=== PATIENT | male | born 1975 | race Caucasian/White ===

== ENCOUNTER 2021-09-04 11:40 | Emergency (ER) | payer OTHER, SELFPAY ==
--- NOTE | 2021-09-04 11:49 | ED.DIZZY ---
HPI - Dizziness General Chief Complaint: Dizziness Stated Complaint: Dizzy.fatigue Time Seen by Provider: 09/04/21 11:54 Source: patient and RN notes reviewed Mode of arrival: ambulatory Limitations: no limitations History of Present Illness MD elicited complaint: dizziness Onset (ago): hour(s) (5) Timing: sudden onset Severity: moderate Description: lightheadedness History of similar symptoms: No Exacerbating factors: position/lying down Relieving factors: remaining still Associated symptoms: nausea and diaphoresis Related Data Allergies Allergy/AdvReac Type Severity Reaction Status Date / Time No Known Allergies Allergy Unverified 09/04/21 12:02 Review of Systems Constitutional: Constitutional: Denies chills and Denies fever(s) ENT: Denies sore throat Cardiovascular: Cardiovascular: Denies chest pain and Denies rapid heart rate Respiratory: Respiratory: Denies dyspnea Gastrointestinal: Gastrointestinal: Denies diarrhea and Denies vomiting Genitourinary: Genitourinary: Denies dysuria Neurologic: Denies confusion, Denies headache(s) and Denies focal weakness Endocrine: Endocrine: Reports fatigue PMFSH Past Medical History Medical History (Updated 09/04/21 @ 13:03 by Yrn Adame MD) Diverticulosis Surgical History Surgical History (Updated 09/04/21 @ 12:08 by Yrn Adame MD) Hx of tonsillectomy Social History Social History (Updated 09/04/21 @ 12:09 by Yrn Adame MD) Smoking status: Never smoker Alcohol intake: current Alcohol use details: occasionally Substance use: never Exam Const: General: healthy appearing, no acute distress and alert Nutritional Appearance: well nourished Orientation/consciousness: patient oriented x3 HENMT: Head: normal to inspection Face and sinus: normal facial exam Eyes: Conjunctivae: conjunctivae normal Pupils: Equal, round and reactive pupils present EOM: EOMs intact bilaterally Neck: Neck: normal visual inspection Resp: Effort & Inspection: normal respiratory effort Auscultation: clear to auscultation bilaterally Cardio: Rate: regular rate Rhythm: regular rhythm GI: GI Palp: Yes Soft to palpation and No Tenderness to palpation present (GI) Auscultation: normal bowel sounds Back/Spine/Pelvis: Cervical Spine: cervical ROM normal Thoracic/Lumbar Spine: thoraco-lumbar ROM normal Skin: General skin exam: normal color Rashes: no rashes Neuro: General: patient oriented x3, moves all extremities, no focal motor deficits and CN's II-XI intact bilaterally Cranial nerves: Yes Nystagmus not present Speech: normal speech Gait exam (Neuro): Normal gait present Extrem: General: normal to inspection and no clubbing, cyanosis or edema Psych: Mental Status: mental status grossly normal Affect: normal affect Attitude: cooperative Course Vital Signs Vital signs: Vital Signs Temperature 37.1 C 09/04/21 11:56 Pulse Rate 79 09/04/21 11:56 Respiratory Rate 16 09/04/21 11:56 Blood Pressure 154/91 H 09/04/21 11:56 Pulse Oximetry 97 09/04/21 11:56 Oxygen Delivery Room Air 09/04/21 11:56 Temperature 36.4 C L 09/04/21 13:12 Pulse Rate 87 09/04/21 13:12 Respiratory Rate 16 09/04/21 13:12 Blood Pressure 145/92 H 09/04/21 13:12 Pulse Oximetry 98 09/04/21 13:12 Oxygen Delivery Room Air 09/04/21 13:12 MDM - Dizziness Lab Data Attestation: I reviewed the patient's lab results. Result diagrams: 09/04/21 12:06 09/04/21 12:06 Labs: Lab Results 09/04/21 09/04/21 09/04/21 Range/Units 12:05 12:06 12:06 WBC 5.9 (4.8-10.8) K/mm3 RBC 5.06 (4.70-6.10) M/mm3 Hgb 16.8 (14.0-18.0) g/dL Hct 48.4 (40.0-54.0) % MCV 95.7 (78.0-102.0) fL MCH 33.2 H (27.0-31.0) pg MCHC 34.7 (32.0-36.0) g/dL RDW 13.2 (11.6-14.4) % Plt Count 208 (150-420) K/mm3 MPV 9.6 (8.7-11.0) fl Immature Gran % (Auto) 0.3 H (0.0-0.0) % Neut % (Au
[2021-09-04 11:56] VITALS: BP 154/91; PULSE 79; RESP 16; TEMP 37.1; O2SAT 97
[2021-09-04 12:10] LABS: Basophils Absolute Auto 0.03 K/mm3 (0.00-0.10); Basophils Percent Auto 0.5 % (0.0-1.0); Eosinophils Absolute Auto 0.24 K/mm3 (0.02-0.50); Eosinophils Percent Auto 4.1 % (1.0-6.0); Hematocrit 48.4 % (40.0-54.0); Hemoglobin 16.8 g/dL (14.0-18.0); Immature Granulocyte Absolute 0.02 K/mm3 (0.00-0.00); Immature Granulocyte Percent A 0.3 % (0.0-0.0); Lymphocytes Absolute Auto 1.77 K/mm3 (1.10-4.50); Lymphocytes Percent Auto 30.1 % (18.0-42.0); Mean Corpuscular HGB Conc 34.7 g/dL (32.0-36.0); Mean Corpuscular Hemoglobin 33.2 pg (27.0-31.0); Mean Corpuscular Volume 95.7 fL (78.0-102.0); Mean Platelet Volume 9.6 fl (8.7-11.0); Monocytes Absolute Auto 0.44 K/mm3 (0.10-0.90); Monocytes Percent Auto 7.5 % (2.0-11.0); Neutrophils Absolute Auto 3.4 K/mm3 (1.7-7.2); Neutrophils Percent Auto 57.5 % (50.0-70.0); Platelet Count Result 208 K/mm3 (150-420); Red Blood Count 5.06 M/mm3 (4.70-6.10); Red Cell Distribution Width 13.2 % (11.6-14.4); White Blood Count 5.9 K/mm3 (4.8-10.8)
[2021-09-04 12:35] LABS: Alanine Aminotransferase 120 U/L (16-63); Albumin Level 3.7 g/dL (3.4-5.0); Alkaline Phosphatase 75 U/L (46-116); Anion Gap 9 mmol/L (8-16); Aspartate Amino Transferase 45 U/L (15-37); Bilirubin,Total 0.6 mg/dL (0.00-1.00); Blood Urea Nitrogen 13 mg/dL (7-18); Calcium 8.6 mg/dL (8.5-10.1); Carbon Dioxide 26 mmol/L (21-32); Chloride 109 mmol/L (98-108); Estimated Glomerular Filt Rate > 60; Glucose 123 mg/dL (70-99); Osmolality Calculated 299 mOsm/kg (285-295); Sodium 144 mmol/L (136-145); Total Protein 7.2 g/dL (6.4-8.2)
[2021-09-04 12:35] LABS: Thyroid Stimulating Hormone 1.92 uIU/mL (0.36-3.74)
[2021-09-04 13:12] VITALS: BP 145/92; PULSE 87; RESP 16; TEMP 36.4; O2SAT 98
== END 2021-09-04 13:18 | disposition home or self-care (01) ==
PROVIDERS: Emergency Provider Emergency Medicine
DX: H81.10 Benign paroxysmal vertigo, unspecified ear (principal)
CPT/HCPCS: 36415; 80053; 84443; 85025; 99283

== ENCOUNTER 2023-03-25 10:16 | Outpatient (CLI) | payer BC, SELFPAY ==
[2023-03-25 10:37] LABS: Basophils Absolute Auto 0.04 K/mm3 (0.00-0.10); Basophils Percent Auto 0.6 % (0.0-1.0); Eosinophils Absolute Auto 0.15 K/mm3 (0.02-0.50); Eosinophils Percent Auto 2.2 % (1.0-6.0); Hematocrit 48.6 % (40.0-54.0); Hemoglobin 16.3 g/dL (14.0-18.0); Immature Granulocyte Absolute 0.03 K/mm3 (0.00-0.00); Immature Granulocyte Percent A 0.4 % (0.0-0.0); Lymphocytes Absolute Auto 1.92 K/mm3 (1.10-4.50); Lymphocytes Percent Auto 28.2 % (18.0-42.0); Mean Corpuscular HGB Conc 33.5 g/dL (32.0-36.0); Mean Corpuscular Hemoglobin 31.4 pg (27.0-31.0); Mean Corpuscular Volume 93.6 fL (78.0-102.0); Mean Platelet Volume 9.4 fl (8.7-11.0); Monocytes Absolute Auto 0.55 K/mm3 (0.10-0.90); Monocytes Percent Auto 8.1 % (2.0-11.0); Neutrophils Absolute Auto 4.1 K/mm3 (1.7-7.2); Neutrophils Percent Auto 60.5 % (50.0-70.0); Platelet Count Result 221 K/mm3 (150-420); Red Blood Count 5.19 M/mm3 (4.70-6.10); Red Cell Distribution Width 13.3 % (11.6-14.4); White Blood Count 6.8 K/mm3 (4.8-10.8)
[2023-03-25 10:38] LABS: Appearance Urine Clear (Clear); Bilirubin Urine Negative (Negative); Blood Urine Trace-Intact (Negative); Color Urine Light Yellow (Yellow); Glucose Urine UA Negative (Negative); Ketones Urine Negative (Negative); Leukocyte Esterase Ur Negative (Negative); Nitrate Urine Negative (Negative); Protein Urine Negative (Negative); Specific Grav Ur 1.025 (1.010-1.020); Urobilinogen Urine 0.2 mg/dL (0.2-1.0)
[2023-03-25 10:39] LABS: Add Urine Microscopic? YES; RBC Urine 0-2 /hpf (0-2)
[2023-03-25 10:40] LABS: Bacteria Urine Trace /hpf; Squamous Epithelial Cell Urine Rare /hpf (Few); WBC Urine None seen /hpf (0-3)
[2023-03-25 11:15] LABS: Alanine Aminotransferase 73 U/L (16-63); Albumin Level 3.7 g/dL (3.4-5.0); Alkaline Phosphatase 68 U/L (46-116); Anion Gap 8 mmol/L (8-16); Aspartate Amino Transferase 33 U/L (15-37); Bilirubin,Total 0.7 mg/dL (0.00-1.00); Blood Urea Nitrogen 10 mg/dL (7-18); Calcium 8.2 mg/dL (8.5-10.1); Carbon Dioxide 29 mmol/L (21-32); Chloride 107 mmol/L (98-108); Cholesterol 156 mg/dL (0-200); Estimated Glomerular Filt Rate > 60; Glucose 105 mg/dL (70-99); HDL Direct 35 mg/dL (40-60); LDL Cholesterol Calculated 78 mg/dL (<130); Osmolality Calculated 297 mOsm/kg (285-295); Potassium 4.2 mmol/L (3.5-5.1); Sodium 144 mmol/L (136-145); Thyroid Stimulating Hormone 2.81 uIU/mL (0.36-3.74); Triglycerides 213 mg/dL (0-150)
== END 2023-03-25 10:17 | disposition home or self-care (01) ==
PROVIDERS: PCP Family Medicine; Visit Provider Family Medicine
DX: R53.83 Other fatigue (principal); Z13.220 Encounter for screening for lipoid disorders
CPT/HCPCS: 36415; 80053; 80061; 81001; 84443; 85025

== ENCOUNTER 2023-10-18 11:49 | Outpatient (CLI) | payer BC, SELFPAY ==
--- NOTE | ~2023-10-18 | XR_ITS ---
XR foot LT min 3V Ordering provider: Pieter Julian MD History: . Pain in left foot for 6 months NKI no arthritis that the pt . Comparison: None. FINDINGS: BONES: No acute fracture or dislocation. Calcaneal spur. JOINT SPACES: Normal. No tarsal coalition. SOFT TISSUES: Normal. IMPRESSION: No acute osseous abnormality left foot. Reviewed, dictated and finalized at location A.
== END 2023-10-18 11:50 | disposition home or self-care (01) ==
LOC: CHSIMG 11:52
PROVIDERS: PCP Family Medicine; Visit Provider Family Medicine
DX: M79.672 Pain in left foot (principal)
CPT/HCPCS: 73630

== ENCOUNTER 2024-04-12 23:57 | Emergency (ER) | payer BC, SELFPAY ==
--- NOTE | ~2024-04-12 | CT_ITS ---
EXAMINATION: CT abdomen pelvis w con DATE: 04/13/2024 00:57 INDICATION: Left lower quadrant abdominal pain TECHNIQUE: Computed tomography (CT) of the abdomen and pelvis was performed with 100 mL Omnipaque-350 intravenous contrast. Automated exposure control and iterative reconstruction technique were employe d. The dose-length product was 1189.36 mGy-cm. COMPARISON: None FINDINGS: Linear bands of discoid atelectasis/scarring in the bilateral lower lungs. Heart size is normal. No p ericardial or pleural effusion. Mild focal hepatic steatosis at the ligamentum teres. Gallbladder, sp gage, pancreas, bilateral adrenal glands and kidneys are normal. Small bowel and appendix are normal. Moderate diverticulosis along the descending and sigmoid colon. There is prominent inflammatory stra nding centered at a diverticulum at the mid descending colon consistent with diverticulitis. No absce ss or free intraperineal gas or fluid. Bladder is normal. Small fat-containing right inguinal hernia. Large fat-containing left inguinal hernia which extends into the scrotum. No pathologically enlarged abdominal or pelvic lymphadenopathy. Mild lumbar and lower thoracic spondylosis. IMPRESSION: 1. Radiographically uncomplicated diverticulitis along the descending colon. Reviewed, dictated and finalized at location A. L CASTING TRADES WORKER
[2024-04-12 23:57] VITALS: BP 121/80; PULSE 112; RESP 17; TEMP 37.2; O2SAT 96
--- OUTSIDE RECORDS SUMMARY | 2024-04-12 23:59 | XMS_ITS | Patient Health Summary ---
Author Organization [facility] Address [address] [place] [address] Care Team Providers Care Frame And Scrap Crusher Name Role Phone Francois Hung MD Primary Care Provider Note from [facility],non-owned Affiliates and Associated Physician Practices is amultiple site organization consisting of ambulatory clinics and hospital sitesin [place], [place], [place] and [place]. This disclosure is being madepursuant to the Care Everywhere program and may not contain all information available regarding this patient. Last updated 17.[facility] [employer] Allergies No known active allergies Medications * Be aware that medications may not be up to date on this document. Alwaysverify current medications with the patient. * levofloxacin (LEVAQUIN) 500 MG tablet(Started 01/21/2010) Take 1 Tab by mouth daily. Social History Tobacco Use Types Packs/Day Years Used Date Smoking Tobacco: Never Assessed Sex and Gender Information Value Date Recorded Sex Assigned at Not on file Gender Identity Not on file Sexual Orientation Not on file Last Filed Vital Signs Vital Sign Reading Time Taken Comments Blood Pressure 107/65 01/21/2010 1:28 AM NEWS ASSISTANT Pulse 75 01/21/2010 1:28 AM NEWS ASSISTANT Temperature 37.1 C (98.8 F) 01/21/2010 1:08 AM NEWS ASSISTANT Respiratory Rate 16 01/21/2010 1:28 AM NEWS ASSISTANT Oxygen Saturation 97% 01/21/2010 1:28 AM NEWS ASSISTANT Inhaled Oxygen Concentration - - Weight 91.6 kg (202 lb) 01/20/2010 10:58 PM NEWS ASSISTANT Height 182.9 cm (6') 01/20/2010 10:58 PM NEWS ASSISTANT Body Mass Index 27.4 01/20/2010 10:58 PM NEWS ASSISTANT Procedures * CULTURE STOOL PANEL(Performed 01/21/2010) * CULTURE BLOOD(Performed 01/21/2010) * CULTURE BLOOD(Performed 01/21/2010) * LIPASE BLOOD(Performed 01/20/2010) * COMPREHENSIVE METABOLIC PANEL(Performed 01/20/2010) * CBC W AUTO DIFFERENTIAL(Performed 01/20/2010) * HGB HCT PANEL(Performed 05/29/2008) * OCCULT BLOOD FECES(Performed 05/29/2008) * COMPREHENSIVE METABOLIC PANEL(Performed 05/29/2008) * CBC W/O DIFFERENTIAL(Performed 05/29/2008) * TYPE + SCREEN PANEL(Performed 05/28/2008) * COMPREHENSIVE METABOLIC PANEL(Performed 05/28/2008) * PTT(Performed 05/28/2008) * PT-INR(Performed 05/28/2008) * CBC W AUTO DIFFERENTIAL(Performed 05/28/2008) * CBC W AUTO DIFFERENTIAL(Performed 04/07/2008) Performed for Diverticulitis of Colon (without Mention of Hemorrhage) * ERYTHROCYTE SEDIMENTATION RATE(Performed 04/06/2008) Performed for Diverticulitis of Colon (without Mention of Hemorrhage) * BASIC METABOLIC PANEL (CALCIUM TOTAL)(Performed 04/06/2008) Performed for Diverticulitis of Colon (without Mention of Hemorrhage) * CBC W AUTO DIFFERENTIAL(Performed 04/06/2008) Performed for Diverticulitis of Colon (without Mention of Hemorrhage) * C DIFFICILE TOXIN A+B(Performed 04/05/2008) Performed for Diverticulitis of Colon (without Mention of Hemorrhage) * CULTURE STOOL PANEL(Performed 04/05/2008) * CULTURE BLOOD(Performed 04/05/2008) * CULTURE BLOOD(Performed 04/05/2008) * CBC W AUTO DIFFERENTIAL(Performed 04/05/2008) Performed for Diverticulitis of Colon (without Mention of Hemorrhage) * COMPREHENSIVE METABOLIC PANEL(Performed 04/05/2008) Performed for Diverticulitis of Colon (without Mention of Hemorrhage) * LIPASE BLOOD(Performed 04/05/2008) Performed for Diverticulitis of Colon (without Mention of Hemorrhage) * CT ABDOMEN WWO PELVIS W CONT(Performed 04/04/2008) Performed for Abdominal Pain, Unspecified Site * URINE MICROSCOPIC ONLY(Performed 04/04/2008) * COMPREHENSIVE METABOLIC PANEL(Performed 04/04/2008) * URINALYSIS NO MICROSCOPIC NO CULTURE(Performed 04/04/2008) * CBC W AUTO DIFFERENTIAL(Performed 04/04/2008) * INFLUENZA A+B ANTIGEN RAPID(Performed 04/04/2008) * XR CHEST 2VW(Performed 04/04/2008) Performed for Unspecified Chest Pain Results * CULTURE STOOL PANEL (01/21/2010 1:17 AM NEWS ASSISTANT) Only the most recent of2 resultswithin the time period is included. Result [facility] Comment: Final Shiga Toxin - Negative CULTURE No Salmonella, Shigella, Campylobacter or E coli [id number] isolated. STOOL SPECIMEN / Unknown 01/21/2010 1:17 AM NEWS ASSISTANT 01/21/2010 1:17 AM NEWS ASSISTANT Narrative Resulting Agency Comment Performed By [facility];[address] [place] [address] Bill VALLADARES LAB - MICROBIOLOGY O RDERABLES Performing Organization Address [facility] de Phone Number [facility] [id number] [place] [id number] * CULTURE BLOOD (01/21/2010 12:16 AM NEWS ASSISTANT) Only the most recent of4 resultswithin the time period is included. Result [facility] Comment: Final CULTURE No Growth PERIPHERAL BLOOD / Unknown 01/21/2010 12:16 AM NEWS ASSISTANT 01/21/2010 12:16 AM NEWS ASSISTANT Narrative Resulting Agency Comment Performed By [facility];[address] [place] [address] Bill [facility]ADARES [facility] - MICROBIOLOGY O RDERABLES Performing Organization Address City/[facility] Co de Phone Number [facility] [address] [place] [address] * (ABNORMAL) CBC W AUTO DIFFERENTIAL (01/20/2010 11:27 PM NEWS ASSISTANT) Only the most recent of6 resultswithin the time period is included. WBC 11.2(H) 4.5 - 11.0 1000/mm3 [facility] RBC 4.70 4.7 - 6.1 10X6 [facility] Hemoglobin 15.3 13.0 - 18.0 gm/dl [facility] Hematocrit 43.9 39.0 - 54.0 % [facility] MCV 93.4 80.0 - 99.0 fl [facility] MCH 32.6(H) 25.0 - 31.0 pg [facility] MCHC 34.9 32.0 - 36.0 gm/dl [facility] RDW 13.6 11.5 - 14.5 % [facility] Platelet Count 166 130.0 - 400.0 1000/mm3 [facility] Granulocytes % 73.4(H) 40.0 - 70.0 % [facility] Lymphocytes % 15.9(L) 22.0 - 40.0 % [facility] Monocytes % 9.5 2.0 - 10.0 % [facility] Eosinophils % 1.0 0.0 - 6.0 % [facility] Basophils % 0.2 0.0 - 3.0 % [facility] Granulocytes Absolute 8.20(H) 1.8 - 7.7 [facility] Lymphocytes Absolute 1.77 1.0 - 5.4 [facility] Monocytes Absolute 1.06 0.1 - 1.1 [facility] Eosinophils Absolute 0.11 0.0 - 0.7 [facility] Basophils Absolute 0.02 0.0 - 0.2 [facility] Comment Manual Diff Not Indicated [facility] BLOOD SPECIMEN / Unknown 01/20/2010 11:27 PM NEWS ASSISTANT 01/20/2010 11:27 PM NEWS ASSISTANT Scooter Salamanca MD LAB - HEMATOLOGY ORD ERABLES Performing Organization Address City/State/[facility] Co de Phone Number [facility] [address] [place] [address] * COMPREHENSIVE METABOLIC PANEL (01/20/2010 11:27 PM NEWS ASSISTANT) Only the most recent of5 resultswithin the time period is included. BUN 14 9.0 - 20.0 mg/dl [facility] Sodium 138 137 - 145 mmol/L [facility] Potassium 4.0 3.6 - 5.0 mmol/L [facility] Chloride 105 98.0 - 107.0 mmol/L [facility] Glucose 110 75 - 110 mg/dl [facility] Creatinine 1.1 0.66 - 1.25 mg/dl [facility] AST 25 17.0 - 59.0 U/L [facility] Alkaline Phosphatase 64 38.0 - 126.0 U/L [facility] Calcium 9.1 8.4 - 10.2 mg/dl [facility] Bilirubin Total 0.7 0.2 - 1.3 mg/dl [facility] Albumin 4.0 3.5 - 5.0 gm/dl [facility] Protein Total 6.8 6.3 - 8.2 gm/dl [facility] CO2 27 22.0 - 30.0 mEq/L [facility] ALT 33 21.0 - 72.0 U/L [facility] eGFR by MDRD 76.63 ml/min/1.7 3m2 [facility] BLOOD SPECIMEN / Unknown 01/20/2010 11:27 PM NEWS ASSISTANT 01/20/2010 11:27 PM NEWS ASSISTANT Scooter Salamanca MD LAB - CHEMISTRY ROBERT BRIONES Performing Organization Address [facility] Co de Phone Number [facility] [address] [place] [address] * LIPASE BLOOD (01/20/2010 11:27 PM NEWS ASSISTANT) Only the most recent of2 resultswithin the time period is included. Lipase 74 23.0 - 300.0 U/L [facility] BLOOD SPECIMEN / Unknown 01/20/2010 11:27 PM NEWS ASSISTANT 01/20/2010 11:27 PM NEWS ASSISTANT Scooter Salamanca MD LAB - CHEMISTRY ROBERT BRIONES Performing Organization Address City/[facility] Co de Phone Number [facility] [address] [place] [address] * HGB HCT PANEL (05/29/2008 3:41 PM CDT) Hemoglobin 13.5 13.0 - 18.0 gm/dl [facility] Hematocrit 39.5 39.0 - 54.0 % [facility] BLOOD SPECIMEN / Unknown 05/29/2008 3:[address] MD LAB - HEMATOLOGY ORD ERABLES Performing Organization Address City/[facility] Co de Phone Number [facility] [address] [place] [address] * OCCULT BLOOD FECES (05/29/2008 9:43 AM CDT) Pathologist [facility] Occult Blood Positive Negative [facility] STOOL SPECIMEN / Unknown 05/29/2008 9:[address] MD LAB - BODY FLUID ORD ERABLES Performing Organization Address [facility] de Phone Number [facility] [address] [place] [address] * (ABNORMAL) CBC W/O DIFFERENTIAL (05/29/2008 7:10 AM CDT) WBC 7.3 4.5 - 11.0 1000/mm3 [facility] RBC 4.36(L) 4.7 - 6.1 10X6 [facility] Hemoglobin 13.9 13.0 - 18.0 gm/dl [facility] Hematocrit 40.4 39.0 - 54.0 % [facility] MCV 92.7 80.0 - 99.0 fl [facility] MCH 31.9(H) 25.0 - 31.0 pg [facility] MCHC 34.4 32.0 - 36.0 gm/dl [facility] RDW 13.8 11.5 - 14.5 % [facility] Platelet Count 221 130.0 - 400.0 1000/mm3 [facility] BLOOD SPECIMEN / Unknown 05/29/2008 7:[address] MD LAB - HEMATOLOGY ORD ERABLES Performing Organization Address [facility] de Phone Number [facility] [address] [place] [address] * TYPE + SCREEN PANEL (05/28/2008 11:57 PM CDT) Pathologist [facility] ABO Rh A Pos [facility] Antibody Screen Neg [facility] BLOOD SPECIMEN / Unknown 05/28/2008 11:57 PM CDT Tito Olivera MD LAB - BLOOD BANK OR DERABLES Performing Organization Address [facility] Co de Phone Number [facility] [address] [place] [address] * PTT (05/28/2008 11:57 PM CDT) PTT 30.6 24.0 - 32.0 seconds [facility] BLOOD SPECIMEN / Unknown 05/28/2008 11:57 PM CDT Tito Olivera MD LAB - COAGULATION O RDERAPRABHA Performing Organization Address [facility] Co de Phone Number [facility] [address] [place] [address] * PT-INR (05/28/2008 11:57 PM CDT) Pathologist [facility] PT 10.2 9.4 - 11.2 seconds [facility] INR 1.0 0.9 - 1.1 [facility] Interpretation INR D [facility] Comment: Conventional Anticoagulation INR 2.0-3.0 Intensive Anticoagulation INR 2.5-3.5 BLOOD SPECIMEN / Unknown 05/28/2008 11:57 PM CDT Tito Olivera MD LAB - COAGULATION O RDGAVIN Performing Organization Address [facility] de Phone Number [facility] [address] [place] [address] * (ABNORMAL) SED RATE WESTERGREN AUTO (04/06/2008 2:30 AM NEWS ASSISTANT) Pathologist [facility] Erythrocyte Sedimentation Rate Westergren 28(H) 0 - 15 mm/Hr [facility] BLOOD SPECIMEN / Unknown 04/06/2008 2:30 AM NEWS ASSISTANT Justice Goodman MD LAB - HEMATOLOGY ORD ERABLES Performing Organization Address [facility] Co de Phone Number [facility] * BASIC METABOLIC PANEL (CALCIUM TOTAL) (04/06/2008 2:30 AM NEWS ASSISTANT) BUN 10 9.0 - 20.0 mg/dl [facility] Sodium 138 137 - 145 mEq/L [facility] Potassium 3.8 3.6 - 5.0 mEq/L [facility] Chloride 102 98.0 - 107.0 mEq/L [facility] CO2 25 22.0 - 30.0 mEq/L [facility] Anion Gap 11.1 [facility] Glucose 99 75 - 110 mg/dl [facility] Creatinine 1.2 0.8 - 1.5 mg/dl [facility] Calcium 8.6 8.4 - 10.2 mg/dl [facility] eGFR by MDRD 74.6 ml/min/1.73 m2 [facility] BLOOD SPECIMEN / Unknown 04/06/2008 2:30 AM NEWS ASSISTANT Justice Goodman MD LAB - CHEMISTRY ORDE RABLES Performing Organization Address City/[facility]/ZIP Co de Phone Number [facility] * CLOSTRIDIUM DIFFICILE TOXIN (04/05/2008 5:44 PM NEWS ASSISTANT) C difficile Toxin A + B Negative Negative [facility] STOOL SPECIMEN / Unknown 04/05/2008 5:44 PM NEWS ASSISTANT Justice Goodman MD LAB - MICROBIOLOGY O RDERABLES Performing Organization Address [facility]/ZIP Co de Phone Number [facility] * CT ABDOMEN W WO CON PELVIS W CON (04/04/2008 9:40 PM NEWS ASSISTANT) Anatomical Region Laterality Modality Abdomen, Pelvis Other 04/04/2008 9:40 PM NEWS ASSISTANT Narrative 04/04/2008 10:[address] abdomen with and without contrast CT pelvis with contrast 04/04/2008 Clinical Indication- Abdominal pain Technique- Axial CT images from the lung bases through the pubic symphysis were obtained following oral and 100 cc Omnipaque-350 intravenous contrast administration. Imaging of the abdomen was also performed without intravenous contrast. Findings- There are sigmoid diverticula. There is focal wall thickening involving the sigmoid colon in the left lower quadrant with stranding in the adjacent fat compatible with acute sigmoid diverticulitis. There is no evidence of free air or abscess. The small and large bowel are normal in caliber. The appendix is not visualized however there are no pericecal inflammatory changes. There is no adenopathy. The liver, spleen, gallbladder, kidneys, adrenal glands, and pancreas are unremarkable. Impression- Acute sigmoid diverticulitis. Read By- ZEN SILVERIO M.D. Released By- ZEN SILVERIO M.D. Released Date Time- 04/04/082227 Vernon ALEXIS M.D. ADM- EMERGENCY,PHYSICIANS VALERIANO JESUS- FRANCOIS CORDERO- Procedure Note Zen Silverio MD - 04/04/2008 CT abdomen with and without contrast CT pelvis with contrast 04/04/2008 Clinical Indication- Abdominal pain Technique- Axial CT images from the lung bases through the pubic symphysis were obtained following oral and 100 cc Omnipaque-350 intravenous contrast administration. Imaging of the abdomen was also performed without intravenous contrast. Findings- There are sigmoid diverticula. There is focal wall thickening involving the sigmoid colon in the left lower quadrant with stranding in the adjacent fat compatible with acute sigmoid diverticulitis. There is no evidence of free air or abscess. The small and large bowel are normal in caliber. The appendix is not visualized however there are no pericecal inflammatory changes. There is no adenopathy. The liver, spleen, gallbladder, kidneys, adrenal glands, and pancreas are unremarkable. Impression- Acute sigmoid diverticulitis. Read By- ZEN SILVERIO M.D. Released By- ZEN SILVERIO M.D. Released Date Time- 04/04/082227 Vernon ALEXIS M.D. ADM- EMERGENCY,PHYSICIANS VALERIANO JESUS- SHARAN- ALIA,FRANCOIS SCP- Valeriano Booker MD CT ORDERABLES * URINALYSIS DIPSTICK AUTO (04/04/2008 7:06 PM NEWS ASSISTANT) Color UA YELLOW [facility] Character UA 1+ [facility] Specific [place] UA 1.015 1.005 - 1.0300 [facility] pH UA 6.0 4.6 - 8.0 pH Units [facility] Leukocyte UA 25 Negative /ul [facility] Nitrite UA neg Negative [facility] Protein UA neg Negative mg/dl [facility] Glucose UA norm Normal mg/dl [facility] Ketone UA neg Negative mg/dl [facility] Urobilinogen UA norm Normal Amita Units [facility] Bilirubin UA neg Negative mg/dl [facility] Blood UA 10 Negative /ul [facility] URINE / Unknown 04/04/2008 7 :06 PM NEWS ASSISTANT Jeffery Monsivais DO LAB - URINALYSIS O RDERABLES Performing Organization Address City/[facility]/ZIP Co de Phone Number [facility] * URINALYSIS MICROSCOPIC ONLY (04/04/2008 7:06 PM NEWS ASSISTANT) WBC UA 0-2 /HPF [facility] RBC UA 0-2 /HPF [facility] Mucus UA 1+ [facility] URINE / Unknown 04/04/2008 7 :06 PM NEWS ASSISTANT LAB - URINALYSIS ORD ERABLES [facility] * INFLUENZA A+B ANTIGEN RAPID SCREEN PANEL (04/04/2008 7:06 PM NEWS ASSISTANT) Pathologist [facility] Influenza A Antigen Not Detected Not Detected [facility] Influenza B Antigen Not Detected Not Detected [facility] ARTERIAL LINE SUBMITTED SPECIMEN / Unknown 04/04/2008 7:06 PM NEWS ASSISTANT Jeffery Monsivais DO LAB - MICROBIOLOGY ORDERABLES [facility] * XR CHEST PA AND LATERAL (04/04/2008 5:24 PM NEWS ASSISTANT) Anatomical Region Laterality Modality Chest Other 04/04/2008 5:24 PM NEWS ASSISTANT Narrative 04/04/2008 5:52 PM NEWS ASSISTANT Chest 2 views Indication- Sore throat, chest pain, nausea, diverticulitis Findings- 2 views of the chest without prior for comparison demonstrates mild hypoventilatory changes in both bases. There is no dense consolidation, pleural effusion or pneumothorax. Heart size is normal. Impression- 1. Hypoventilatory changes. This examination was transcribed using the [employer] voice recognition system without human agent telegrapher. In an effort to expedite distribution and patient care, this report has not been adjusted for typographical, grammatical, and syntax by a trained medical assistant supervisor. Read By- MECHE TORREZ M.D. Released By- MECHE TORREZ M.D. Released Date Time- 04/04/08 1752 Buffing Wheel Raker- ITALO Pierce ADM- EMERGENCY,PHYSICIANS ATT- EMERGENCY,PHYSICIANS REF- CON- PCP- FRANCOIS HUNG SCP- Procedure Note Meche Torrez - 04/04/2008 Chest 2 views Indication- Sore throat, chest pain, nausea, diverticulitis Findings- 2 views of the chest without prior for comparison demonstrates mild hypoventilatory changes in both bases. There is no dense consolidation, pleural effusion or pneumothorax. Heart size is normal. Impression- 1. Hypoventilatory changes. This examination was transcribed using the [employer] voice recognition system without human agent telegrapher. In an effort to expedite distribution and patient care, this report has not been adjusted for typographical, grammatical, and syntax by a trained medical assistant supervisor. Read By- MECHE TORREZ M.D. Released By- MECHE TORREZ M.D. Released Date Time- 04/04/08 1752 Buffing Wheel Raker- ITALO Pierce ADM- EMERGENCY,PHYSICIANS ATT- EMERGENCY,PHYSICIANS REF- CON- PCP- FRANCOIS HUNG SCP- Jeffery Monsivais DO DIAGNOSTIC IMAGING ORDERABLES Care Teams Frame And Scrap Crusher Relationship Specialty Start Date End Date Francois Hung MD [address] [place], [place] [address] [place] [address] PCP - General 04/04/08
--- OUTSIDE RECORDS SUMMARY | 2024-04-12 23:59 | XMS_ITS | Clinical Summary ---
Author Organization [email or web address] Address [address] [place] [address] Care Team Providers Care Land Mobile Radio Technician Name Role Phone Francois Hung MD Primary Care Provider [phone] Source Comments [email or web address],non-owned Affiliates and Associated Physician Practices is amultiple site organization consisting of ambulatory clinics and hospital sitesin [place], [place], [place] and [place]. This disclosure is being madepursuant to the Care Everywhere program and may not contain all information available regarding this patient. Last updated 17.[email or web address] Allergies No known active allergies Medications * Be aware that medications may not be up to date on this document. Alwaysverify current medications with the patient. Medication Sig Dispensed Refills Start Date End Date Status levofloxacin (LEVAQUIN) 500 MG tablet Take 1 Tab by mouth daily. 10 Tab 0 01/21/2010 Active Social History Tobacco Use Types Packs/Day Years Used Date Smoking Tobacco: Never Assessed Sex and Gender Information Value Date Recorded Sex Assigned at Not on file Gender Identity Not on file Sexual Orientation Not on file Last Filed Vital Signs Vital Sign Reading Time Taken Comments Blood Pressure 107/65 01/21/2010 1:28 AM HAND NAILER Pulse 75 01/21/2010 1:28 AM HAND NAILER Temperature 37.1 C (98.8 F) 01/21/2010 1:08 AM HAND NAILER Respiratory Rate 16 01/21/2010 1:28 AM HAND NAILER Oxygen Saturation 97% 01/21/2010 1:28 AM HAND NAILER Inhaled Oxygen Concentration - - Weight 91.6 kg (202 lb) 01/20/2010 10:58 PM HAND NAILER Height 182.9 cm (6') 01/20/2010 10:58 PM HAND NAILER Body Mass Index 27.4 01/20/2010 10:58 PM HAND NAILER Plan of Treatment Health Maintenance Due Date Last Done Comments COLOGUARD (AGES 45-75) - COL ON CA SCREENING 1975 COLON MONITORING 1975 COLONOSCOPY - COLON CA SCREENING 1975 CT COLONOGRAPHY - COLON CA SCREENING 1975 Colorectal Cancer Screening 1975 FIT - COLON CA SCREENING 1975 FLEX SIG - COLON CA SCREENING 1975 LIPID TESTING 1975 HIV SCREENING 07/13/1990 HEPATITIS C SCREENING 07/09/1993 DTAP/TDAP/TD VACCINES (1 - Tdap) 07/13/1994 HEPATITIS B VACCINE (1 of 3 - 19+ 3-dose series) 07/13/1994 COVID-19 VACCINE ( - 2023-2 5 season) 2023 INFLUENZA VACCINE (#1) 2023 DEPRESSION SCREENING 02/28/2024 ZOSTER VACCINE (1 of 2) 07/13/2025 HIB VACCINE Aged Out No longer eligi ble based on patient's age to complete this topic HPV VACCINE Aged Out No longer eligi ble based on patient's age to complete this topic MENINGOCOCCAL (Group B) VACCINE Aged Out No longer eligible based on patient's age to complete this topic MENINGOCOCCAL VACCINE Aged Out No [facility] eligible based on patient's age to complete this topic PNEUMOCOCCAL VACCINE Aged Out No long er eligible based on patient's age to complete this topic Care Teams Land Mobile Radio Technician Relationship Specialty Start Date End Date Francois Hung MD [address] [address] PCP - General 04/04/08
--- OUTSIDE RECORDS SUMMARY | 2024-04-12 23:59 | XMS_ITS | Continuity of Care Document ---
Author Organization [facility] Address [address] [place] [address] Phone Care Team Providers Care Italian Lecturer Name Role Phone Jeff Manzano MD Unavailable Unavailable Procedures Procedure Date SCREENING COLONOSCOPY ; HIGH RISK Advance Directives Directive Yes / No Effective Date File Name No Information Encounters Encounter Description Practice Location Reason(s) For Visit Diagnoses Date Provider Providers Copied on Encounter [facility], [address], [place], [place], [id number], tel:[phone] [facility] No Information Jose Juan Aguilar. [address] [place] [address], [id number] , . tel:[phone] [facility], [address], [place], [place], [id number], tel:[phone] [facility] No Information Jose Juan Aguilar. [address] [place] [address], [id number] , [place]. [phone] Referring Provider: Jeff Manzano, [address] [place] [address], [id number] . tel:[phone] Family History Family Member Type Diagnosis Age At Onset No Information Payers Payer name Insurance type Covered green party ID Authoriza tion(s) No Information Social History Type Description Quantity Date Captured Comments Sex Male Smoking Status No Information Chief Complaint And Reason For Visit No Information Reason For Referral Reason For Referral No Information History Of Present Illness Encounter Date Complaint History Of Prese nt Illness No Information Functional Status Date Functional Assessmen t No Information Instructions Date Instruction Additional Infor mation No Information Assessments Type Assessment Date No Information Patient Care Teams Name Effective Dates (start - stop) Status Members No Information
--- OUTSIDE RECORDS SUMMARY | 2024-04-12 23:59 | XMS_ITS | Referral Summary ---
Author Organization [facility] Address [address] [place] [address] Care Team Providers Care Actuarial Trainee Name Role Phone Francois Hung MD Primary Care Provider [phone] Source Comments [facility],non-owned Affiliates and Associated Physician Practices is amultiple site organization consisting of ambulatory clinics and hospital sitesin [place], [place], [place] and [place]. This disclosure is being madepursuant to the Care Everywhere program and may not contain all information available regarding this patient. Last updated 17.[facility] Allergies No known active allergies Medications * [...] Comments Blood Pressure 107/65 01/21/2010 1:28 AM MANAGER OF PROJECT MANAGEMENT Pulse 75 01/21/2010 1:28 AM MANAGER OF PROJECT MANAGEMENT Temperature 37.1 C (98.8 F) 01/21/2010 1:08 AM MANAGER OF PROJECT MANAGEMENT Respiratory Rate 16 01/21/2010 1:28 AM MANAGER OF PROJECT MANAGEMENT Oxygen Saturation 97% 01/21/2010 1:28 AM MANAGER OF PROJECT MANAGEMENT Inhaled Oxygen Concentration - - Weight 91.6 kg (202 lb) 01/20/2010 10:58 PM MANAGER OF PROJECT MANAGEMENT Height 182.9 cm (6') 01/20/2010 10:58 PM MANAGER OF PROJECT MANAGEMENT Body Mass Index 27.4 01/20/2010 10:58 PM MANAGER OF PROJECT MANAGEMENT Plan of Treatment Not on file Care Teams Actuarial Trainee Relationship Specialty Start Date End Date Francois Hung MD [address] [place] [address] PCP - General 04/04/08
--- OUTSIDE RECORDS SUMMARY | 2024-04-12 23:59 | XMS_ITS | Clinical Summary ---
Author Organization [facility] Address [facility] [place] [address] Care Team Providers Care Solvent Mixer Name Role Phone None, Provider MD Primary Care Provider Unavaila ble Allergies No known active allergies Medications No known medications Social History Tobacco Use Types Packs/Day Years Used Date Smoking Tobacco: Never Smokeless Tobacco: Never Sex and Gender Information Value Date Recorded Sex Assigned at Not on file Legal Sex Male 1:57 PM CDT Gender Identity Not on file Sexual Orientation Not on file Last Filed Vital Signs Vital Sign Reading Time Taken Comments Blood Pressure 137/93 12/27/2020 5:17 PM CDT Pulse 101 12/27/2020 5:17 PM CDT Temperature 36.7 C (98 F) 12/27/2020 12:36 PM CDT Respiratory Rate 18 12/27/2020 12:3 6 PM CDT Oxygen Saturation 96% 12/27/2020 5:17 PM CDT Inhaled Oxygen Concentration - - Weight 113.5 kg (250 lb 3.6 oz) 021 12:32 PM CDT Height 180.3 cm (5' 11 ) 12/27/2020 12: 32 PM CDT Body Mass Index 34.9 12/27/2020 12:32 PM CDT Plan of Treatment Health Maintenance Due Date Last Done Comments Colorectal Cancer Screening Colonoscopy (10 Years) 1975 Annual Physical 07/13/1978 Hepatitis C 07/13/1993 DTaP, Tdap and Td Vaccines (1 - Tdap) 07/13/1994 08/29/1980, 11/02/1977, 1975, Additional history exists Hepatitis B Vaccines (1 of 3 - 19+ 3-dose series) 07/13/1994 COVID-19 Vaccine (2023- season) 2023 Influenza Adult (#1) 2023 Meningococcal B Vaccine Aged Out No l onger eligible based on patient's age to complete this topic Meningococcal Vaccine Aged Out No roosevelt gentry eligible based on patient's age to complete this topic Pneumococcal Vaccine: Pediatrics (0 to 5 Years) and At-Risk Patients (6 to 64 Years) Aged Out No longer eligible based on patient's age to complete this topic RSV Immunizations Under 20 Months Aged Out No longer eligible based on patient's age to complete this topic Insurance [facility] Care Teams Solvent Mixer Relationship Specialty Start Date End Date None, Provider, PCP - General 12/27/20
--- NOTE | 2024-04-13 | ED.ABDPAIN ---
HPI - Abdominal Pain General Chief Complaint: Abdominal Pain Stated Complaint: abdominal pain Time Seen by Provider: 04/13/24 00:00 Source: patient Mode of arrival: ambulatory Limitations: no limitations History of Present Illness HPI narrative: 48 years old white male complaining of lower abdominal pain mainly on the left side, radiating to left lower back started 8 days ago. Was seen by his family physician who started him on Levaquin for possible diverticulitis, patient's symptoms improved after few days then started getting worse 2 days ago. Patient was seen by his family physician this morning and started on Cipro and Flagyl. he denies any fever, chills, or vomiting patient reports intermittent nausea. Patient is healthy otherwise, does not take medicine at home except the above once Related Data Home Medications ?Medication ?Instructions ?Recorded ?Confirmed ?Last Taken ?Type ciprofloxacin HCl 500 mg tablet 500 mg PO DAILY 04/13/24 04/13/24 Unknown History levofloxacin 500 mg tablet 500 mg PO DAILY 04/13/24 04/13/24 Unknown History metronidazole 500 mg tablet 500 mg PO DAILY 04/13/24 04/13/24 Unknown History Allergies Allergy/AdvReac Type Severity Reaction Status Date / Time No Known Allergies Allergy Verified 04/13/24 00:45 Review of Systems Review of Systems: All systems reviewed & are unremarkable except as noted in HPI and below PMFSH Past Medical History Medical History Diverticulosis Surgical History Surgical History Hx of tonsillectomy Social History Social History Smoking status: Never smoker Alcohol intake: current Alcohol use details: occasionally Substance use: never Exam Narrative: General appearance: Well-developed, well-nourished Skin: Normal color Head: Normocephalic, nontraumatic Eyes: Clear conjunctiva ENT: Oropharynx normal, ears normal, nose normal Neck: Supple, nontender Chest and respiratory: Airway patent, no respiratory distress, no accessory muscle use Heart: Regular rate/rhythm Abdomen: Soft, moderate tenderness left lower quadrant, no guarding or rebound, no organomegaly, quiet bowel sounds Vascular: Normal peripheral pulses, normal capillary refill. Musculoskeletal: Normal range of motion, nontender back Neurologic: Alert and oriented ?3, STAMP PAD FINISHER is normal as tested, no gross motor deficit Course Vital Signs Vital signs: Vital Signs Temperature 37.2 C 04/12/24 23:57 Pulse Rate 112 H 04/12/24 23:57 Respiratory Rate 17 04/12/24 23:57 Blood Pressure 121/80 04/12/24 23:57 Pulse Oximetry 96 04/12/24 23:57 Oxygen Delivery Room Air 04/12/24 23:57 Temperature 37.2 C 04/12/24 23:57 Pulse Rate 87 04/13/24 01:12 Respiratory Rate 16 04/13/24 01:12 Blood Pressure 113/76 04/13/24 01:12 Pulse Oximetry 93 04/13/24 01:12 Oxygen Delivery Room Air 04/13/24 01:12 MDM - Abdominal Pain MDM Narrative Medical decision making narrative: patient presents with lower abdominal pain Vital sign Physical examination consistent with lower abdominal tenderness mainly at the left lower quadrant Differential diagnosis include diverticulitis, urinary tract infection, kidney stone, constipation, colitis Blood workup today includes CBC, CMP, lipase, lactic acid showed WBC 12.8 otherwise within normal limit Urinalysis showed no evidence of infection CT abdomen and pelvis with IV contrast showed uncomplicated diverticulitis. continue home Cipro 500 b.i.d. and Flagyl 500 t.i.d. and diverticulitis diet. Differential Diagnosis Differential diagnosis: Likely abdominal pain, calculus of kidney, constipation and diverticulitis Medical Records Attestation: I reviewed the patient's medical records. Lab Data Attestation: I reviewed the patient's lab results. 04/13/24 00:12 04/13/24 00:12 Labs: Lab Results 04/13/24 04/13/24 Range/Units 00:12 01:02 WBC 12.8 H (4.8-10.8) K/mm3 RBC 5.07 (4.70-6.10) M/mm3 Hgb 16.0 (14.0-18.0) g/dL Hct 47.9 (40.0-54.0) % MCV 94.5 (78.0-102.0) fL MCH 31.6 H (27.0-31.0) pg MCHC 33.4 (32-36) g/dL RDW 13.1 (11.6-14.4) % Plt Count 250 (150-420) K/mm3 MPV 9.3 (8.7-11.0) fl Immature Gran % (Auto) 0.3 H (0.0-0.0) % Neut % (Auto) 77.0 H (50.0-70.0) % Lymph % (Auto) 12.0 L (18.0-42.0) % [place] % (Auto) 9.9 (2.0-11.0) % Eos % (Auto) 0.5 L (1.0-6.0) % Baso % (Auto) 0.3 (0.0-1.0) % Lymph # (Auto) 1.53 (1.10-4.50) K/mm3 [place] # (Auto) 1.26 H (0.10-0.90) K/mm3 Eos # (Auto) 0.06 (0.02-0.50) K/mm3 Baso # (Auto) 0.04 (0.00-0.10) K/mm3 Abs Immat Gran (auto) 0.04 H (0.00-0.00) K/mm3 Absolute Neuts (auto) 9.85 H (1.70-7.20) K/mm3 Absolute Nucleated RBC 0.00 (0.00-0.00) K/mm3 Nucleated RBC % 0.0 (0-0.0) % Sodium 137 (136-145) mmol/L Potassium 3.8 (3.5-5.1) mmol/L Chloride 102 (98-108) mmol/L Carbon Dioxide 26 (21-32) mmol/L Anion Gap 9 (4-12) mmol/L BUN 12 (7-18) mg/dL Creatinine 1.23 (0.70-1.30) mg/dL Estim Creat Clear Calc Not Reportable Estimated GFR > 60 (59 - ) Glucose 121 H (70-99) mg/dL Calculated Osmolality 284 L (285-295) mOsm/kg Lactic Acid 0.6 (0.4-2.0) mmol/L Calcium 8.6 (8.5-10.1) mg/dL Total Bilirubin 1.1 H (0.00-1.00) mg/dL AST 18 (15-37) U/L ALT 32 (16-63) U/L Alkaline Phosphatase 84 (46-116) U/L Total Protein 7.4 (6.4-8.2) g/dL Albumin 3.3 L (3.4-5.0) g/dL Lipase 38 (16-77) U/L Urine Color Light yellow (Yellow) Urine Appearance Clear (Clear) Urine pH 6.5 (5.0-8.0) Ur Specific [place] 1.010 (1.010-1.020) Urine Protein Negative (Negative) Urine Glucose (UA) Negative (Negative) Urine Ketones Negative (Negative) Ur Blood (Man) Negative (Negative) Urine Nitrate Negative (Negative) Urine Bilirubin Negative (Negative) Urine Urobilinogen 0.2 (0.2-1.0) mg/dL Leukocyte Esterase Rfl Negative (Negative) RENNY/UL Imaging Data Radiologist's impression: CT abdomen and pelvis with IV contrast showed descending colon diverticulitis. No abscess or perforation. The solid organs are within normal limits. No bowel obstruction. No appendix. No fracture. Critical Care Time Critical Care Time Critical Care Time: No Discharge Plan Discharge Clinical Impression: Diverticulitis Patient Disposition: Home, Self-Care Condition: Stable Instructions: Diverticulitis (ED), Diverticulitis Diet (ED) Additional Instructions: Return if symptoms are worsening , call your family physician for appointment, take Tylenol as as needed for aches and pain, continue home medications. Continue Cipro 500 b.i.d. for 7 days and metronidazole 500 t.i.d. for 7 days Patient Language: Vietnamese Prescriptions: No Action meclizine 25 mg tablet 25 mg PO TID PRN (Reason: dizziness) Qty: 30 0RF ciprofloxacin HCl 500 mg tablet 500 mg PO DAILY levofloxacin 500 mg tablet 500 mg PO DAILY metronidazole 500 mg tablet 500 mg PO DAILY Follow-up/Referrals: Pieter Julian MD [Primary Care Provider] -
[2024-04-13] MEDS: SODIUM CHLORIDE 0.9% IV 1,000 ML 999 ML IV CONT (00:17)
[2024-04-13 00:18] LABS: Basophils Absolute Auto 0.04 K/mm3 (0.00-0.10); Basophils Percent Auto 0.3 % (0.0-1.0); Eosinophils Absolute Auto 0.06 K/mm3 (0.02-0.50); Eosinophils Percent Auto 0.5 % (1.0-6.0); Hematocrit 47.9 % (40.0-54.0); Immature Granulocyte Absolute 0.04 K/mm3 (0.00-0.00); Immature Granulocyte Percent A 0.3 % (0.0-0.0); Lymphocytes Absolute Auto 1.53 K/mm3 (1.10-4.50); Mean Corpuscular HGB Conc 33.4 g/dL (32-36); Mean Corpuscular Hemoglobin 31.6 pg (27.0-31.0); Mean Corpuscular Volume 94.5 fL (78.0-102.0); Mean Platelet Volume 9.3 fl (8.7-11.0); Monocytes Absolute Auto 1.26 K/mm3 (0.10-0.90); Monocytes Percent Auto 9.9 % (2.0-11.0); Neutrophils Absolute Auto 9.85 K/mm3 (1.70-7.20); Platelet Count Result 250 K/mm3 (150-420); Red Blood Count 5.07 M/mm3 (4.70-6.10); Red Cell Distribution Width 13.1 % (11.6-14.4); White Blood Count 12.8 K/mm3 (4.8-10.8)
[2024-04-13 00:31] LABS: Alanine Aminotransferase 32 U/L (16-63); Albumin Level 3.3 g/dL (3.4-5.0); Alkaline Phosphatase 84 U/L (46-116); Anion Gap 9 mmol/L (4-12); Aspartate Amino Transferase 18 U/L (15-37); Bilirubin,Total 1.1 mg/dL (0.00-1.00); Blood Urea Nitrogen 12 mg/dL (7-18); Calcium 8.6 mg/dL (8.5-10.1); Carbon Dioxide 26 mmol/L (21-32); Chloride 102 mmol/L (98-108); Estimated Glomerular Filt Rate > 60; Glucose 121 mg/dL (70-99); Lipase 38 U/L (16-77); Osmolality Calculated 284 mOsm/kg (285-295); Potassium 3.8 mmol/L (3.5-5.1); Sodium 137 mmol/L (136-145); Total Protein 7.4 g/dL (6.4-8.2)
[2024-04-13 00:36] LABS: Lactic Acid Reflex 0.6 mmol/L (0.4-2.0)
--- OUTSIDE RECORDS SUMMARY | 2024-04-13 00:36 | XMS_ITS | Clinical Summary ---
Author Organization [facility] Address [address] [place] [address] Care Team Providers Care Building Services Engineer Name Role Phone Francois Hung MD Primary Care Provider [phone] Source Comments [facility],non-owned Affiliates and Associated Physician Practices is amultiple site organization consisting of ambulatory clinics and hospital sitesin [place], [place], [place]. This disclosure is being madepursuant to the Care Everywhere program and may not contain all information available regarding this patient. Last updated 17.[facility] Allergies No known active allergies Medications * [...] Comments Blood Pressure 107/65 01/21/2010 1:28 AM CARDIAC CATH TECH Pulse 75 01/21/2010 1:28 AM CARDIAC CATH TECH Temperature 37.1 C (98.8 F) 01/21/2010 1:08 AM CARDIAC CATH TECH Respiratory Rate 16 01/21/2010 1:28 AM CARDIAC CATH TECH Oxygen Saturation 97% 01/21/2010 1:28 AM CARDIAC CATH TECH Inhaled Oxygen Concentration - - Weight 91.6 kg (202 lb) 01/20/2010 10:58 PM CARDIAC CATH TECH Height 182.9 cm (6') 01/20/2010 10:58 PM CARDIAC CATH TECH Body Mass Index 27.4 01/20/2010 10:58 PM CARDIAC CATH TECH Plan of Treatment Health Maintenance Due Date [...] age to complete this topic Care Teams Building Services Engineer Relationship Specialty Start Date End Date Francois Hung MD [address] [address] PCP - General 04/04/08
--- OUTSIDE RECORDS SUMMARY | 2024-04-13 00:36 | XMS_ITS | Patient Health Summary ---
Author Organization [facility] Address [address] [place] [address] Care Team Providers Care Crepe Machine Operator Name Role Phone Francois Hung MD Primary Care Provider [phone] Note from [facility],non-owned Affiliates and Associated Physician Practices is amultiple site organization consisting of ambulatory clinics and hospital sitesin [place], [place], [place] and [place]. This disclosure is being madepursuant to the Care Everywhere program and may not contain all information available regarding this patient. Last updated 17.[facility] [place] Allergies No known active allergies Medications * [...] Comments Blood Pressure 107/65 01/21/2010 1:28 AM MOLECULAR BIOLOGY SCIENTIST Pulse 75 01/21/2010 1:28 AM MOLECULAR BIOLOGY SCIENTIST Temperature 37.1 C (98.8 F) 01/21/2010 1:08 AM MOLECULAR BIOLOGY SCIENTIST Respiratory Rate 16 01/21/2010 1:28 AM MOLECULAR BIOLOGY SCIENTIST Oxygen Saturation 97% 01/21/2010 1:28 AM MOLECULAR BIOLOGY SCIENTIST Inhaled Oxygen Concentration - - Weight 91.6 kg (202 lb) 01/20/2010 10:58 PM MOLECULAR BIOLOGY SCIENTIST Height 182.9 cm (6') 01/20/2010 10:58 PM MOLECULAR BIOLOGY SCIENTIST Body Mass Index 27.4 01/20/2010 10:58 PM MOLECULAR BIOLOGY SCIENTIST Procedures * CULTURE STOOL PANEL(Performed 01/21/2010) * [...] * CULTURE STOOL PANEL (01/21/2010 1:17 AM MOLECULAR BIOLOGY SCIENTIST) Only the most recent of2 resultswithin the time period is included. Result [facility] Comment: Final Shiga Toxin - Negative CULTURE No Salmonella, Shigella, Campylobacter or E coli [id number] isolated. STOOL SPECIMEN / Unknown 01/21/2010 1:17 AM MOLECULAR BIOLOGY SCIENTIST 01/21/2010 1:17 AM MOLECULAR BIOLOGY SCIENTIST Narrative Resulting Agency Comment Performed By [facility];[address] [place] [address] Bill VALLADARES LAB - MICROBIOLOGY O RDERABLES Performing Organization Address [facility] de Phone Number [facility] [id number] [place] [address] * CULTURE BLOOD (01/21/2010 12:16 AM MOLECULAR BIOLOGY SCIENTIST) Only the most recent of4 resultswithin the time period is included. Result [facility] Comment: Final CULTURE No Growth PERIPHERAL BLOOD / Unknown 01/21/2010 12:16 AM MOLECULAR BIOLOGY SCIENTIST 01/21/2010 12:16 AM MOLECULAR BIOLOGY SCIENTIST Narrative Resulting Agency Comment Performed By [facility];[address] [place] [address] Bill VALLADARES LAB - MICROBIOLOGY O RDERABLES Performing Organization Address City/[facility] Co de Phone Number [facility] [address] [place] [address] * (ABNORMAL) CBC W AUTO DIFFERENTIAL (01/20/2010 11:27 PM MOLECULAR BIOLOGY SCIENTIST) Only the most recent of6 resultswithin the time period is included. WBC 11.2(H) 4.5 - 11.0 1000/mm3 [facility] RBC 4.70 4.7 - 6.1 10X6 [facility] Hemoglobin 15.3 13.0 - 18.0 gm/dl [facility] Hematocrit 43.9 39.0 - 54.0 % [facility] MCV 93.4 80.0 - 99.0 fl [facility] MCH 32.6(H) 25.0 - 31.0 pg [facility] MCHC 34.9 32.0 - 36.0 gm/dl [facility] RDW 13.6 11.5 - 14.5 % [facility] Platelet Count 166 130.0 - 400.0 1000/mm3 [facility] Granulocytes % 73.4(H) 40.0 - 70.0 % [facility] Lymphocytes % 15.9(L) 22.0 - 40.0 % [facility] Monocytes % 9.5 2.0 - 10.0 % [facility] Eosinophils % 1.0 0.0 - 6.0 % [facility] Basophils % 0.2 0.0 - 3.0 % [facility] Granulocytes Absolute 8.20(H) 1.8 - 7.7 [facility] Lymphocytes Absolute 1.77 1.0 - 5.4 [facility] Monocytes Absolute 1.06 0.1 - 1.1 [facility] Eosinophils Absolute 0.11 0.0 - 0.7 [facility] Basophils Absolute 0.02 0.0 - 0.2 [facility] Comment Manual Diff Not Indicated [facility] BLOOD SPECIMEN / Unknown 01/20/2010 11:27 PM MOLECULAR BIOLOGY SCIENTIST 01/20/2010 11:27 PM MOLECULAR BIOLOGY SCIENTIST Scooter Salamanca MD LAB - HEMATOLOGY ORD ERABLES Performing Organization Address City/State/[facility] Co de Phone Number [facility] [address] [place] [address] * COMPREHENSIVE METABOLIC PANEL (01/20/2010 11:27 PM MOLECULAR BIOLOGY SCIENTIST) Only the most recent of5 resultswithin the time period is included. BUN 14 9.0 - 20.0 mg/dl [facility] Sodium 138 137 - 145 mmol/L [facility] Potassium 4.0 3.6 - 5.0 mmol/L [facility] Chloride 105 98.0 - 107.0 mmol/L [facility] Glucose 110 75 - 110 mg/dl [facility] Creatinine 1.1 0.66 - 1.25 mg/dl [facility] AST 25 17.0 - 59.0 U/L [facility] Alkaline Phosphatase 64 38.0 - 126.0 U/L [facility] Calcium 9.1 8.4 - 10.2 mg/dl [facility] Bilirubin Total 0.7 0.2 - 1.3 mg/dl [facility] Albumin 4.0 3.5 - 5.0 gm/dl [facility] Protein Total 6.8 6.3 - 8.2 gm/dl [facility] CO2 27 22.0 - 30.0 mEq/L [facility] ALT 33 21.0 - 72.0 U/L [facility] eGFR by MDRD 76.63 ml/min/1.7 3m2 [facility] BLOOD SPECIMEN / Unknown 01/20/2010 11:27 PM MOLECULAR BIOLOGY SCIENTIST 01/20/2010 11:27 PM MOLECULAR BIOLOGY SCIENTIST Scooter Salamanca MD LAB - CHEMISTRY ROBERT BRIONES Performing Organization Address [facility] Co de Phone Number [facility] [address] [place] [address] * LIPASE BLOOD (01/20/2010 11:27 PM MOLECULAR BIOLOGY SCIENTIST) Only the most recent of2 resultswithin the time period is included. Lipase 74 23.0 - 300.0 U/L [facility] BLOOD SPECIMEN / Unknown 01/20/2010 11:27 PM MOLECULAR BIOLOGY SCIENTIST 01/20/2010 11:27 PM MOLECULAR BIOLOGY SCIENTIST Scooter Salamanca MD LAB - CHEMISTRY ROBERT BRIONES Performing Organization Address City/[facility] Co de Phone Number [facility] [address] [place] [address] * HGB HCT PANEL (05/29/2008 3:41 PM CDT) Hemoglobin 13.5 13.0 - 18.0 gm/dl [facility] Hematocrit 39.5 39.0 - 54.0 % [facility] BLOOD SPECIMEN / Unknown 05/29/2008 3:[address] MD LAB - HEMATOLOGY ORD ERABLES Performing Organization Address City/[facility] Co de Phone Number [facility] [address] [place] [address] * OCCULT BLOOD FECES (05/29/2008 9:43 AM CDT) Pathologist [facility] Occult Blood Positive Negative [facility] STOOL SPECIMEN / Unknown 05/29/2008 9:[address] MD LAB - BODY FLUID ORD ERABLES Performing Organization Address [facility] de Phone Number [facility] [address] [place] [address] * (ABNORMAL) CBC W/O DIFFERENTIAL (05/29/2008 7:10 AM CDT) WBC 7.3 4.5 - 11.0 1000/mm3 [facility] RBC 4.36(L) 4.7 - 6.1 10X6 [facility] Hemoglobin 13.9 13.0 - 18.0 gm/dl [facility] Hematocrit 40.4 39.0 - 54.0 % [facility] MCV 92.7 80.0 - 99.0 fl [facility] MCH 31.9(H) 25.0 - 31.0 pg [facility] MCHC 34.4 32.0 - 36.0 gm/dl [facility] RDW 13.8 11.5 - 14.5 % [facility] Platelet Count 221 130.0 - 400.0 1000/mm3 [facility] BLOOD SPECIMEN / Unknown 05/29/2008 7:[address] MD LAB - HEMATOLOGY ORD ERABLES Performing Organization Address [facility] de Phone Number [facility] [address] [place] [address] * TYPE + SCREEN PANEL (05/28/2008 11:57 PM CDT) Pathologist [facility] ABO Rh A Pos [facility] Antibody Screen Neg [facility] BLOOD SPECIMEN / Unknown 05/28/2008 11:57 PM CDT Tito Olivera MD LAB - BLOOD BANK OR DERABLES Performing Organization Address [facility] Co de Phone Number [facility] [address] [place] [address] * PTT (05/28/2008 11:57 PM CDT) PTT 30.6 24.0 - 32.0 seconds [facility] BLOOD SPECIMEN / Unknown 05/28/2008 11:57 PM CDT Tito Olivera MD LAB - COAGULATION O RDERAPRABHA Performing Organization Address [facility] Co de Phone Number [facility] [address] [place] [address] * PT-INR (05/28/2008 11:57 PM CDT) Pathologist [facility] PT 10.2 9.4 - 11.2 seconds [facility] INR 1.0 0.9 - 1.1 [facility] Interpretation INR D [facility] Comment: Conventional Anticoagulation INR 2.0-3.0 Intensive Anticoagulation INR 2.5-3.5 BLOOD SPECIMEN / Unknown 05/28/2008 11:57 PM CDT Tito Olivera MD LAB - COAGULATION O RDGAVIN Performing Organization Address [facility] de Phone Number [facility] [address] [place] [address] * (ABNORMAL) SED RATE WESTERGREN AUTO (04/06/2008 2:30 AM MOLECULAR BIOLOGY SCIENTIST) Pathologist [facility] Erythrocyte Sedimentation Rate Westergren 28(H) 0 - 15 mm/Hr [facility] BLOOD SPECIMEN / Unknown 04/06/2008 2:30 AM MOLECULAR BIOLOGY SCIENTIST Justice Goodman MD LAB - HEMATOLOGY ORD ERABLES Performing Organization Address [facility] Co de Phone Number [facility] * BASIC METABOLIC PANEL (CALCIUM TOTAL) (04/06/2008 2:30 AM MOLECULAR BIOLOGY SCIENTIST) BUN 10 9.0 - 20.0 mg/dl [facility] Sodium 138 137 - 145 mEq/L [facility] Potassium 3.8 3.6 - 5.0 mEq/L [facility] Chloride 102 98.0 - 107.0 mEq/L [facility] CO2 25 22.0 - 30.0 mEq/L [facility] Anion Gap 11.1 [facility] Glucose 99 75 - 110 mg/dl [facility] Creatinine 1.2 0.8 - 1.5 mg/dl [facility] Calcium 8.6 8.4 - 10.2 mg/dl [facility] eGFR by MDRD 74.6 ml/min/1.73 m2 [facility] BLOOD SPECIMEN / Unknown 04/06/2008 2:30 AM MOLECULAR BIOLOGY SCIENTIST Justice Goodman MD LAB - CHEMISTRY ORDE RABLES Performing Organization Address City/[facility]/ZIP Co de Phone Number [facility] * CLOSTRIDIUM DIFFICILE TOXIN (04/05/2008 5:44 PM MOLECULAR BIOLOGY SCIENTIST) C difficile Toxin A + B Negative Negative [facility] STOOL SPECIMEN / Unknown 04/05/2008 5:44 PM MOLECULAR BIOLOGY SCIENTIST Justice Goodman MD LAB - MICROBIOLOGY O RDERABLES Performing Organization Address [facility]/ZIP Co de Phone Number [facility] * CT ABDOMEN W WO CON PELVIS W CON (04/04/2008 9:40 PM MOLECULAR BIOLOGY SCIENTIST) Anatomical Region Laterality Modality Abdomen, Pelvis Other 04/04/2008 9:40 PM MOLECULAR BIOLOGY SCIENTIST Narrative 04/04/2008 10:28 [address]CULAR BIOLOGY SCIENTIST CT abdomen with and without contrast CT [...] * URINALYSIS DIPSTICK AUTO (04/04/2008 7:06 PM MOLECULAR BIOLOGY SCIENTIST) Color UA YELLOW [facility] Character UA 1+ [facility] Specific [place] UA 1.015 1.005 - 1.0300 [facility] pH UA 6.0 4.6 - 8.0 pH Units [facility] Leukocyte UA 25 Negative /ul [facility] Nitrite UA neg Negative [facility] Protein UA neg Negative mg/dl [facility] Glucose UA norm Normal mg/dl [facility] Ketone UA neg Negative mg/dl [facility] Urobilinogen UA norm Normal [place] Units [facility] Bilirubin UA neg Negative mg/dl [facility] Blood UA 10 Negative /ul [facility] URINE / Unknown 04/04/2008 7 :06 PM MOLECULAR BIOLOGY SCIENTIST Jeffery Monsivais DO LAB - URINALYSIS O RDERABLES Performing Organization Address City/[facility]/ZIP Co de Phone Number [facility] * URINALYSIS MICROSCOPIC ONLY (04/04/2008 7:06 PM MOLECULAR BIOLOGY SCIENTIST) WBC UA 0-2 /HPF [facility] RBC UA 0-2 /HPF [facility] Mucus UA 1+ [facility] URINE / Unknown 04/04/2008 7 :06 PM MOLECULAR BIOLOGY SCIENTIST LAB - URINALYSIS ORD ERABLES [facility] * INFLUENZA A+B ANTIGEN RAPID SCREEN PANEL (04/04/2008 7:06 PM MOLECULAR BIOLOGY SCIENTIST) Pathologist [facility] Influenza A Antigen Not Detected Not Detected [facility] Influenza B Antigen Not Detected Not Detected [facility] ARTERIAL LINE SUBMITTED SPECIMEN / Unknown 04/04/2008 7:06 PM MOLECULAR BIOLOGY SCIENTIST Jeffery Monsivais DO LAB - MICROBIOLOGY ORDERABLES [facility] * XR CHEST PA AND LATERAL (04/04/2008 5:24 PM MOLECULAR BIOLOGY SCIENTIST) Anatomical Region Laterality Modality Chest Other 04/04/2008 5:24 PM MOLECULAR BIOLOGY SCIENTIST Narrative 04/04/2008 5:52 PM MOLECULAR BIOLOGY SCIENTIST Chest 2 views Indication- Sore throat, chest pain, nausea, diverticulitis Findings- 2 views of the chest without prior for comparison demonstrates mild hypoventilatory changes in both bases. There is no dense consolidation, pleural effusion or pneumothorax. Heart size is normal. Impression- 1. Hypoventilatory changes. This examination was transcribed using the [employer] voice recognition system without human digitizer. In an effort to expedite distribution and patient care, this report has not been adjusted for typographical, grammatical, and syntax by a trained medical accounting clerk. Read By- MECHE TORREZ M.D. Released By- MECHE TORREZ M.D. Released Date Time- 04/04/08 1752 [employer] Ski Maker- ITALO Pierce ADM- EMERGENCY,PHYSICIANS ATT- EMERGENCY,PHYSICIANS REF- [...] changes. This examination was transcribed using the [employer] voice recognition system without human digitizer. In an effort to expedite distribution and patient care, this report has not been adjusted for typographical, grammatical, and syntax by a trained medical accounting clerk. Read By- MECHE TORREZ M.D. Released By- MECHE TORREZ M.D. Released Date Time- 04/04/08 1752 [employer]erglass Ski Maker- ITALO Pierce ADM- EMERGENCY,PHYSICIANS ATT- EMERGENCY,PHYSICIANS REF- CON- PCP- FRANCOIS HUNG SCP- Jeffery Monsivais DO DIAGNOSTIC IMAGING ORDERABLES Care Teams Crepe Machine Operator Relationship Specialty Start Date End Date Francois Hung MD [address] [place], [place] [address] [place] [address] PCP - General 04/04/08
--- OUTSIDE RECORDS SUMMARY | 2024-04-13 00:36 | XMS_ITS | Clinical Summary ---
Author Organization [facility] Address [facility] [place] [address] Care Team Providers Care Fixed Income Analyst Name Role Phone None, Provider MD Primary [...] patient's age to complete this topic Insurance [facility] Care Teams Fixed Income Analyst Relationship Specialty Start Date End Date None, Provider, PCP - General 12/27/20
--- OUTSIDE RECORDS SUMMARY | 2024-04-13 00:36 | XMS_ITS | Referral Summary ---
Author Organization [facility] Address [address] [place] [address] Care Team Providers Care Typewriter Mechanic Name Role Phone Francois Hung MD Primary Care Provider [phone] Source Comments [facility],non-owned Affiliates and Associated Physician Practices is amultiple site organization consisting of ambulatory clinics and hospital sitesin [place], [place], [place] and [place]. This disclosure is being madepursuant to the Care Everywhere program and may not contain all information available regarding this patient. Last updated 17.[facility] Allergies No known active allergies Medications * [...] Comments Blood Pressure 107/65 01/21/2010 1:28 AM BACK SEAM STITCHER Pulse 75 01/21/2010 1:28 AM BACK SEAM STITCHER Temperature 37.1 C (98.8 F) 01/21/2010 1:08 AM BACK SEAM STITCHER Respiratory Rate 16 01/21/2010 1:28 AM BACK SEAM STITCHER Oxygen Saturation 97% 01/21/2010 1:28 AM BACK SEAM STITCHER Inhaled Oxygen Concentration - - Weight 91.6 kg (202 lb) 01/20/2010 10:58 PM BACK SEAM STITCHER Height 182.9 cm (6') 01/20/2010 10:58 PM BACK SEAM STITCHER Body Mass Index 27.4 01/20/2010 10:58 PM BACK SEAM STITCHER Plan of Treatment Not on file Care Teams Typewriter Mechanic Relationship Specialty Start Date End Date Francois Hung MD [address] [place] [address] PCP - General 04/04/08
--- OUTSIDE RECORDS SUMMARY | 2024-04-13 00:36 | XMS_ITS | Continuity of Care Document ---
Author Organization [facility] Address [address] [place] [address] Phone Care Team Providers Care School Counselor Name Role Phone Jeff Manzano MD Unavailable Unavailable Procedures Procedure Date SCREENING COLONOSCOPY ; HIGH RISK Advance Directives Directive Yes / No Effective Date File Name No Information Encounters Encounter Description Practice Location Reason(s) For Visit Diagnoses Date Provider Providers Copied on Encounter [facility], [address], [place], [place], [id number], tel:[phone] [facility] No Information Jose Juan Aguilar. [address] [place] [address], [id number] , . tel:[phone] [facility], [address], [place], [place], [id number], tel:[phone] [facility] No Information Jose Juan Aguilar. [address] [place] [address], [id number] , [place]. [phone] Referring Provider: Jeff Manzano, [address] [place] [address], [id number] . tel:[phone] Family History Family Member Type Diagnosis Age At Onset No Information Payers Payer name Insurance type Covered democrat ID Authoriza tion(s) No Information Social History [...]
[2024-04-13 01:05] LABS: Add Urine Microscopic? NO; Appearance Urine Clear (Clear); Bilirubin Urine Negative (Negative); Blood Urine Negative (Negative); Color Urine Light Yellow (Yellow); Glucose Urine UA Negative (Negative); Ketones Urine Negative (Negative); Leukocyte Esterase Ur Negative LEU/UL (Negative); Nitrate Urine Negative (Negative); Protein Urine Negative (Negative); Urobilinogen Urine 0.2 mg/dL (0.2-1.0); pH Urine 6.5 (5.0-8.0)
[2024-04-13] MEDS: ONDANSETRON INJ 4 MG/2 ML VIAL IV PUSH (01:07)
[2024-04-13] MEDS: HYDROmorphone HCL INJ (*CRX) 2 MG/ML VIAL 0.5 MG IV PUSH (01:08)
[2024-04-13 01:12] VITALS: BP 113/76; PULSE 87; RESP 16; O2SAT 93
== END 2024-04-13 01:55 | disposition home or self-care (01) ==
PROVIDERS: Emergency Provider Emergency Medicine; PCP Family Medicine
DX: K57.92 Diverticulitis of intestine, part unspecified, without perforation or abscess without bleeding (principal); Z79.899 Other long term (current) drug therapy
CPT/HCPCS: 36415; 74177; 80053; 81003; 83605; 83690; 85025; 96361; 96374; 96375; 99284; J1171; J2405; J7030; Q9967